=== PATIENT | male | born 1950 ===

== ENCOUNTER 2023-04-23 06:00 | Outpatient (RCR) | payer MEDICARE, SELFPAY | END 2023-05-13 23:59 | disposition home or self-care (01) | LOC: MOT 06:00 | PROVIDERS: Visit Provider Physician Assistant | DX: Z47.1 Aftercare following joint replacement surgery (principal); Z96.611 Presence of right artificial shoulder joint | CPT/HCPCS: 97110; 97140; 97166; G0283 ==

== ENCOUNTER 2023-05-14 06:00 | Outpatient (RCR) | payer MEDICARE, SELFPAY | END 2023-06-12 23:59 | disposition home or self-care (01) | LOC: MOT 06:00 | PROVIDERS: Visit Provider Physician Assistant | DX: Z96.611 Presence of right artificial shoulder joint (principal) | CPT/HCPCS: 97110; 97140 ==

== ENCOUNTER 2023-06-13 06:00 | Outpatient (RCR) | payer MEDICARE, SELFPAY | END 2023-07-13 23:59 | disposition home or self-care (01) | LOC: MOT 06:00 | PROVIDERS: Visit Provider Physician Assistant | DX: Z47.1 Aftercare following joint replacement surgery (principal); Z96.611 Presence of right artificial shoulder joint | CPT/HCPCS: 97110; 97140 ==